=== PATIENT | female | born 1995 | race Caucasian/White ===

== ENCOUNTER 2017-08-14 15:34 | Inpatient (IN) | payer OTHER ==
[~2017-08-14] VITALS: Ht 157.5 cm; Wt 52.0 kg
[2017-08-16] MEDS ORDERED: PRENATAL TABLE1 EAC3 PO (07:40)
[2017-08-17] MEDS ORDERED: PRENATAL TABLE1 EAC2 PO (13:21)
== END 2017-08-16 12:46 | disposition home or self-care (01) | DRG 781 ==
LOC: OBS/DEL 15:34 → LDR 08-15 11:33
PROC: BY4FZZZ Ultrasonography of Third Trimester, Single Fetus (ICD-10-PCS; principal; 2017-08-15)
PROC: 4A1HXCZ Monitoring of Products of Conception, Cardiac Rate, External Approach (ICD-10-PCS; 2017-08-15)
DX: O10.013 Pre-existing essential hypertension complicating pregnancy, third trimester (principal); O47.1 False labor at or after 37 completed weeks of gestation; Z3A.38 38 weeks gestation of pregnancy

== ENCOUNTER 2017-08-17 11:58 | Inpatient (IN) | payer OTHER ==
[~2017-08-17] VITALS: Ht 160 cm; Wt 99.8 kg
[~2017-08-17 11:58] MED LIST: PRENATAL TABLE1 EAC3 PO
[2017-08-17] MEDS ORDERED: PRENATAL TABLE1 EAC2 PO (13:21)
== END 2017-08-19 14:13 | disposition home or self-care (01) | DRG 774 ==
LOC: LDR 11:58 → OB/GYN 11:58
PROC: 10E0XZZ Delivery of Products of Conception, External Approach (ICD-10-PCS; principal; 2017-08-17)
PROC: 10907ZC Drainage of Amniotic Fluid, Therapeutic from Products of Conception, Via Natural or Artificial Opening (ICD-10-PCS; 2017-08-17)
PROC: 4A1HXCZ Monitoring of Products of Conception, Cardiac Rate, External Approach (ICD-10-PCS; 2017-08-17)
DX: O99.824 Streptococcus B carrier state complicating childbirth (principal); O75.3 Other infection during labor; O13.4 Gestational [pregnancy-induced] hypertension without significant proteinuria, complicating childbirth; Z3A.39 39 weeks gestation of pregnancy; Z37.0 Single live birth

== ENCOUNTER → 2017-10-02 08:00 | Outpatient (CLI) | payer OTHER ==
[~2017-10-02 08:00] MED LIST changes: +PRENATAL TABLE1 EAC2 PO
== END | disposition home or self-care (01) ==
LOC: LAB 08:00 → CIR.AMB 10-05 08:06 → EDSTATUS 10-05 08:53
DX: Z64.1 Problems related to multiparity (principal); Z01.812 Encounter for preprocedural laboratory examination